=== PATIENT | male | born 1990 | race African-American/Black ===

== ENCOUNTER 2021-09-29 18:34 | Emergency (ER) | payer MEDICAID ==
[~2021-09-29] VITALS: Ht 182.9 cm; Wt 100.0 kg
[2021-09-29] MEDS ORDERED: IBUPROFEN 800MG TABLET PO ONE (19:15)
[2021-09-29] MEDS ORDERED: HYDROCODONE/ACETAMINOPHEN 10/325MG TABLET PO ONE (19:15)
[2021-09-29] MEDS ORDERED: FENTANYL CITRATE/PF 50MCG/ML 2ML VIAL IV ONE ×2 (21:15→23:30)
[2021-09-29] MEDS ORDERED: PROPOFOL 200MG/20ML VIAL IV ONE (21:15)
[2021-09-29] MEDS ORDERED: PROPOFOL 200MG/20ML VIAL IV NR (23:22)
[2021-09-30 00:43] VITALS: BP 135/74
== END 2021-09-30 00:43 | disposition home or self-care (01) ==
LOC: ER 18:34
DX: S43.084A Other dislocation of right shoulder joint, initial encounter (principal); F41.9 Anxiety disorder, unspecified; F32.A Depression, unspecified; X58.XXXA Exposure to other specified factors, initial encounter; Y93.89 Activity, other specified; Y92.89 Other specified places as the place of occurrence of the external cause
CPT/HCPCS: 73030; 73060; 73080; 73090; 96374; 99284; J2704; J3010

== ENCOUNTER 2021-09-30 01:15 | Emergency (ER) | payer MEDICAID ==
[~2021-09-30] VITALS: Ht 185.4 cm; Wt 91.0 kg
[2021-09-30] MEDS ORDERED: PROPOFOL 200MG/20ML VIAL IV ONE (02:45)
[2021-09-30] MEDS ORDERED: ONDANSETRON HCL 4MG/2ML INJ IV ONE (02:45)
[2021-09-30 05:00] VITALS: BP 153/78
== END 2021-09-30 05:00 | disposition home or self-care (01) ==
LOC: ER 01:15
DX: S43.004A Unspecified dislocation of right shoulder joint, initial encounter (principal); Y08.89XA Assault by other specified means, initial encounter; Y93.89 Activity, other specified; Y92.89 Other specified places as the place of occurrence of the external cause; Y99.8 Other external cause status
CPT/HCPCS: 23650; 73030; 96374; 99152; 99285; J2405; J2704

== ENCOUNTER 2021-09-30 08:56 | Emergency (ER) | payer MEDICAID ==
[~2021-09-30] VITALS: Ht 185.4 cm; Wt 95.0 kg
[2021-09-30 10:47] VITALS: BP 107/86
== END 2021-09-30 10:49 | disposition home or self-care (01) ==
LOC: ER 09:37
DX: M25.511 Pain in right shoulder (principal)
CPT/HCPCS: 73030; 99283